=== PATIENT | female | born 1985 | race Caucasian/White ===

== ENCOUNTER 2019-10-26 12:55 | Outpatient (CLI) | payer OTHER, SELFPAY ==
[2019-10-26 13:58] LABS: Basophils % 0.6 %; Eosinophils # 0.2 10^3/uL (0.0-0.8); Eosinophils % 2.5 %; Hematocrit 31.8 % (37.0-47.0); Hemoglobin 8.7 g/dL (11.5-15.3); Lymphocytes # 1.8 10^3/uL (0.8-4.8); Lymphocytes % 26.2 %; Mean Corpuscular HGB Conc 27.4 g/dL (30.0-36.0); Mean Corpuscular Hemoglobin 20.8 pg (28.0-34.0); Mean Corpuscular Volume 75.9 fL (81-99); Mean Platelet Volume 11.1 fL (7.4-10.4); Monocytes # 0.4 10^3/uL (0.2-0.9); Monocytes % 5.8 %; Neutrophils # 4.33 10^3/uL (1.8-7.7); Neutrophils % 64.8 %; Nucleated Red Blood Cells % 0 %; Platelet Count 325 10^3/cmm (130-400); Red Blood Count 4.19 10^6/uL (4.1-5.3); Red Cell Distribution Width 17.6 % (12.1-15.1); White Blood Count 6.7 10^3/uL (4.0-10.0)
--- NOTE | 2019-10-26 15:25 | ONC CON_ITS ---
Dr. Lee New Patient Note Patient: Lo Vasquez Unit #: [id number]: 1985 Dicatated By: Jai Lee M.D.Date of Visit: Oct 26, 2019 Onc MED New Patient/Consult Referring Physician: GARDENIA BALL, F.N.P. History of Present Illness: Ms. Lo Vasquez, 34-year-old female with history of iron deficiency anemia diagnosed in 2018, when she was with her third child. She was given an oral iron supplement, patient took it for 2 weeks then stopped taking it because of GI intolerance e.g. abdominal pain indigestion, constipation, flatulence. Now recently started having progressive generalized weakness and fatigue, dyspnea on exertion, palpitation, mild dizziness, went to see her PMD on August 29, 2019 and routine lab work-up done that day showed white blood count 6.9 hemoglobin 9.2 hematocrit 30.1 platelets 321,000 with MCV 71.7 CMP was within normal limit except AST 67, TSH 1.44, anemia work-up showed ferritin 4 iron 20 iron saturation 5% findings were consistent with iron deficiency anemia. As patient could not take oral iron earlier, she was referred to hematology clinic for evaluation for parenteral iron. Patient denies any history of blood transfusion, denies any history of jaundice denies any history of melena or hematochezia or hemoptysis or hematemesis but history of gastroesophageal reflux for which she takes omeprazole. Denies any history of hematuria but history of heavy menstrual. periods, as per patient she has been referred to [facility] for evaluation but still waiting for the appointment. And she also noticed continues vaginal bleeding mixed with off and on spotting since her last periods Started on September 27, 2019. Denies any family history of colon cancer, denies any history of EGD or colonoscopy in the past. Past Medical History: Ms. Mason medical history consists of gastroesophageal reflux disease and irritable bowel syndrome. Past Surgical History: Ms. Mason surgical/procedural history consists of caesarean section in 2006. Medications: Amitriptyline HCl 1 Tablet (of 25 mg) Oral daily, Flaxseed Oil 1 Capsule Oral daily, Magnesium 1 Tablet (of 400 mg) Oral daily, Omeprazole 1 Capsule (of 20 mg) Capsule Delayed Release Oral daily, Vitamin C 1 Capsule (of 500 mg) Oral daily, Zinc 1 Tablet (of 50 mg) Oral daily Allergies: Bactrim DS and Erythromycin Base. Social History: Ms. Vasquez is and she is unemployed. She is a light tobacco smoker who has smoked 0.5 packs/day for 4 years. She has no history of drinking. She has indicated exposure to the following products: cigarettes. Ms. Vasquez reports the following support systems: lives with spouse, significant other, family, or friends, lives in own house, supportive family/friends willing to assist with needs, and adequate transportation available for expected visits. Her diet consists of regular meals. She indicates her activity level as: regular exercise. Family History: Ms. Kangs mother is alive: hypertension, and melanoma, and basal cell carcinoma, and squamous cell skin cancer. Ms. Kangs father is alive: tongue cancer. Review Of Symptoms: Constitutional - Appetite is diminished and weight is increasing. No fever or hot flashes. Energy level is fair. Positive for night sweats, ENMT - No sinus congestion/drainage. No mouth sores. No sore throat or difficulty swallowing, Hematologic/Lymphatic - Pt reports that she bruises easily. Pt has also been experiencing continuous menstrual bleeding for approximately 1 month, Respiratory - Positive for shortness of breath. No cough. No pleuritic pain or hemoptysis, Cardiovascular - No angina pain. Positive for palpitations, Gastrointestinal - No nausea or vomiting. No heartburn. Positive for acid reflux. No diarrhea. Positive for constipation. No blood in the stool or black stools, Genitourinary (F) - No dysuria or hematuria. No urinary frequency. No urgency. Occasional incontinence, Musculoskeletal - No joint or bone pain, Neurologic - No headache or dizziness. No numbness or tingling. No other focal neurologic symptoms, Psychiatric - No anxiety or depression. Positive for insomnia. Vital Signs: Most recent vitals are not available for this patient. Performance Status: 0 - Fully active, able to carry on all predisease activities without restrictions. (ECOG) Physical Examination: ENMT - No mouth sores, no jaundice, no thrush, Respiratory - Lungs are clear, Cardiovascular - Regular rate and rhythm of heart, Abdomen - Soft, bowel sounds present, Extremities - No visible edema. Lab/Imaging: Most recent lab results are not available for this patient. Impression: Iron deficiency anemia, most likely due to heavy menstrual periods, now with dysfunctional uterine bleeding etiology unclear History of oral iron intolerance e.g. GI intolerance, abdominal pain, constipation excessive flatulence. History of reflux disease, on omeprazole Active smoker Recent weight gain. Plan: Discussed with patient regarding her labs from today showed white blood count 6.7 hemoglobin 8.7 hematocrit 31.8 platelets 325,000 MCV 75.9 with normal differential Clinically, patient is a mild to moderate distress due to progressive iron deficiency anemia due to heavy menstrual periods, now with dysfunctional uterine bleeding since September 27, 2019, patient is awaiting [facility] evaluation. Patient also has history of intolerance to oral iron, in that case we would consider parenteral iron Injectafer 750 mg IV weekly x2 all the side effects possible benefits associated with IV iron including allergic reaction were mentioned further teaching will be done by nursing. Patient has no family history of colon cancer and no history of GI bleeding, role of colonoscopy in iron deficiency anemia was discussed and if with management of her heavy menstrual periods, she still has persistent iron deficiency anemia or if there is any evidence of GI bleeding, in that case we will consider GI evaluation as patient is reluctant at this point. We will obtain approval from insurance prior to the infusion and then she will return to clinic 1 month after second weekly dose of Injectafer with CBC and iron studies. We will also check her B12 and folic acid level, if low will consider supplement. Signed By: Jai Lee M.D. <<Signature on File>>
[2019-10-27 07:55] LABS: Folate Level 11.5 ng/mL (4.8-37.3); Vitamin B12 248 pg/mL (232-1245)
== END 2019-10-26 12:56 | disposition home or self-care (01) ==
LOC: ONCMED 13:01
PROVIDERS: PCP Nurse Practitioner Family; Visit Provider Internal Medicine Hematology & Oncology
DX: D50.9 Iron deficiency anemia, unspecified (principal); N92.0 Excessive and frequent menstruation with regular cycle; N93.8 Other specified abnormal uterine and vaginal bleeding; K21.9 Gastro-esophageal reflux disease without esophagitis; F17.200 Nicotine dependence, unspecified, uncomplicated; R63.5 Abnormal weight gain
CPT/HCPCS: 82607; 82746; 85025; 99203

== ENCOUNTER 2019-11-02 06:19 | Outpatient (CLI) | payer OTHER, SELFPAY ==
[2019-11-02] MEDS: ferric carboxy (IVPB) 750 MG in sodium chloride 0.9% (100 ml) 100 ML 345 MG IV (10:13)
== END 2019-11-02 06:20 | disposition home or self-care (01) ==
LOC: ONCMED 06:21
PROVIDERS: PCP Nurse Practitioner Family; Visit Provider Internal Medicine Hematology & Oncology
DX: D50.9 Iron deficiency anemia, unspecified (principal)
CPT/HCPCS: 96365; J1439

== ENCOUNTER 2019-11-10 06:08 | Outpatient (CLI) | payer OTHER, SELFPAY ==
[2019-11-10] MEDS: ferric carboxy (IVPB) 750 MG in sodium chloride 0.9% (100 ml) 100 ML 460 MG IV (08:46)
== END 2019-11-10 06:09 | disposition home or self-care (01) ==
LOC: ONCMED 06:10
PROVIDERS: PCP Nurse Practitioner Family; Visit Provider Internal Medicine Hematology & Oncology
DX: D50.9 Iron deficiency anemia, unspecified (principal)
CPT/HCPCS: 96365; J1439

== ENCOUNTER 2019-12-04 07:39 | Outpatient (CLI) | payer OTHER, SELFPAY ==
--- NOTE | 2019-12-04 07:48 | MM_ITS ---
WS: [id number] Bilateral screening digital mammogram, 12/04/2019 Clinical Data: SCREENING Comparison: None. Findings: The breast parenchymal pattern shows fibroglandular tissue No spiculated masses or clustered calcific ations are seen. There are no secondary signs of carcinoma. MM/[id number] Impression: 1. Negative bilateral mammogram. 2. Recommend screening mammograms when clinically indicated. BIRADS: 1-Negative FOLLOW UP: See Report The CAD engineering drawings checker was used.
== END 2019-12-04 07:40 | disposition home or self-care (01) ==
LOC: RADSHAW 07:42
PROVIDERS: PCP Nurse Practitioner Family; Visit Provider Nurse Practitioner Family
DX: Z12.31 Encounter for screening mammogram for malignant neoplasm of breast (principal)
CPT/HCPCS: 77067

== ENCOUNTER 2019-12-08 11:46 | Outpatient (CLI) | payer OTHER, SELFPAY ==
[2019-12-08 12:08] LABS: Basophils % 0.2 %; Eosinophils % 0.2 %; Hematocrit 38.9 % (37.0-47.0); Hemoglobin 12.2 g/dL (11.5-15.3); Lymphocytes # 3.4 10^3/uL (0.8-4.8); Lymphocytes % 24.5 %; Mean Corpuscular HGB Conc 31.4 g/dL (30.0-36.0); Mean Corpuscular Hemoglobin 28.8 pg (28.0-34.0); Mean Platelet Volume 10.6 fL (7.4-10.4); Monocytes # 0.9 10^3/uL (0.2-0.9); Monocytes % 6.3 %; Neutrophils # 9.44 10^3/uL (1.8-7.7); Neutrophils % 68.2 %; Nucleated Red Blood Cells % 0 %; Platelet Count 262 10^3/cmm (130-400); Red Blood Count 4.23 10^6/uL (4.1-5.3); White Blood Count 13.9 10^3/uL (4.0-10.0)
[2019-12-08 12:21] LABS: Ferritin 250 ng/mL (15-150); Iron 79 ug/dL (37-145); Percent Saturation 40.1 % (20-50); Total Iron Binding Capacity 197 mcg/dl; Unsaturated Iron Binding 118 ug/dL (112-347)
[2019-12-08 13:03] LABS: Add RBC Morph Yes
[2019-12-08 13:04] LABS: Slide Review Slide Review Perform
[2019-12-08 13:06] LABS: RBC Morph Comp No
[2019-12-08 13:07] LABS: Anisocytosis 2+
[2019-12-08 13:08] LABS: Tear Drop Cells 1+
== END 2019-12-08 11:47 | disposition home or self-care (01) ==
LOC: ONCMED 11:46
PROVIDERS: PCP Nurse Practitioner Family; Visit Provider Internal Medicine Hematology & Oncology
DX: D50.9 Iron deficiency anemia, unspecified (principal)
CPT/HCPCS: 82728; 83540; 83550; 85025

== ENCOUNTER 2019-12-11 05:37 | Outpatient (CLI) | payer OTHER, SELFPAY ==
[2019-12-11] MEDS: cyanocobalamin 1,000 mcg/mL SDV 1000 MCG SUBCUT (14:20)
--- NOTE | 2019-12-11 16:09 | ONC FU_ITS ---
Dr. Lee follow up note Patient: Lo Vasquez Unit #: [id number]: 1985 Dicatated By: Jai Lee M.D.Date of Visit:Dec 11, 2019 Onc Med Follow-up/Prog Note History of Present Illness: Ms. Lo Vasquez, 34-year-old female with history of iron deficiency anemia diagnosed in 2018, when she was with her third child. She was given an oral iron supplement, patient took it for 2 weeks then stopped taking it because of GI intolerance e.g. abdominal pain indigestion, constipation, flatulence. Now recently started having progressive generalized weakness and fatigue, dyspnea on exertion, palpitation, mild dizziness, went to see her PMD on August 29, 2019 and routine lab work-up done that day showed white blood count 6.9 hemoglobin 9.2 hematocrit 30.1 platelets 321,000 with MCV 71.7 CMP was within normal limit except AST 67, TSH 1.44, anemia work-up showed ferritin 4 iron 20 iron saturation 5% findings were consistent with iron deficiency anemia. As patient could not take oral iron earlier, she was referred to hematology clinic for evaluation for parenteral iron. Patient denies any history of blood transfusion, denies any history of jaundice denies any history of melena or hematochezia or hemoptysis or hematemesis but history of gastroesophageal reflux for which she takes omeprazole. Denies any history of hematuria but history of heavy menstrual. periods, as per patient she has been referred to [facility] for evaluation but still waiting for the appointment. And she also noticed continues vaginal bleeding mixed with off and on spotting since her last periods Started on September 27, 2019. Denies any family history of colon cancer, denies any history of EGD or colonoscopy in the past. Injectafer 750 mg IV was given on November 01 and November 10, 2019 with excellent response, with normalization of hemoglobin and iron stores. Came for follow-up, complaining of generalized weakness and fatigue, still having heavy menstrual periods but no melena or hematochezia, no hemoptysis or hematemesis, no jaundice. Medications: Amitriptyline HCl 1 Tablet (of 25 mg) Oral daily, Flaxseed Oil 1 Capsule Oral daily, hydrOXYzine Pamoate 1 Capsule (of 25 mg) Oral four times a day, Magnesium 1 Tablet (of 400 mg) Oral daily, Omeprazole 1 Capsule (of 20 mg) Capsule Delayed Release Oral daily, Vitamin C 1 Capsule (of 500 mg) Oral daily, Zinc 1 Tablet (of 50 mg) Oral daily Allergies: Bactrim DS and Erythromycin Base. Review of Systems: Review of Systems is not available for this patient. Vital Signs: Performed on Dec 11, 2019 13:37 Height - 62 in Weight - 186.9 lbs (HIGH) BSA - 1.86 sq.m BMI - 34.18 (HIGH) Temperature - 97.5 F (LOW) Pulse - 83 /min Respiration - 18 /min BP - 130/84 mm(hg) O2 Sat - 97 % Pain - 10 Performance Status: 0 - Fully active, able to carry on all predisease activities without restrictions. (ECOG) Physical Examination: ENMT - No mouth sores, no thrush, no jaundice, Respiratory - Lungs are clear to auscultation, Cardiovascular - Regular rate and rhythm of heart, Abdomen - Soft, bowel sounds present, Extremities - No visible edema. Lab/Imaging: Most recent lab results are not available for this patient. Impression: Iron deficiency anemia, most likely due to heavy menstrual periods, now with dysfunctional uterine bleeding etiology unclear History of oral iron intolerance e.g. GI intolerance, abdominal pain, constipation excessive flatulence. History of reflux disease, on omeprazole Active smoker Recent weight gain. Plan: Discussed with patient regarding her labs white blood count 13.9 hemoglobin 12.2 hematocrit 38.9 platelets 262,000 iron saturation 40.1 ferritin 250 iron 79, folate 11.5 and B12 248 which is on the low side of normal range Clinically, patient is doing well, tolerated parenteral iron well now with excellent response, her hemoglobin has gone up to 12.2 g from 8.7 on October 26, 2019 ED prior to Injectafer infusion, thus patient responded well to parenteral iron and her folate level was within normal range but B12 was on the low side of normal range and patient still symptomatic which could be due to low B12 and patient is on oral B12 supplements, may have partial malabsorption,, at this point we will consider parenteral B12,, starting today, weekly x4, loading dose then every month as maintenance. Patient will return to clinic in 1 month with CBC iron studies and B12 level. As far as heavy menstrual periods Is concerned, patient is considering control pills. Signed By: Jai Lee M.D. <<Signature on File>>
== END 2019-12-11 05:38 | disposition home or self-care (01) ==
LOC: ONCMED 05:38
PROVIDERS: PCP Nurse Practitioner Family; Visit Provider Internal Medicine Hematology & Oncology
DX: D50.9 Iron deficiency anemia, unspecified (principal); N93.8 Other specified abnormal uterine and vaginal bleeding; K21.9 Gastro-esophageal reflux disease without esophagitis; N92.0 Excessive and frequent menstruation with regular cycle; F17.210 Nicotine dependence, cigarettes, uncomplicated; R63.5 Abnormal weight gain; Z68.34 Body mass index [BMI] 34.0-34.9, adult
CPT/HCPCS: 96372; 99214; J3420

== ENCOUNTER 2019-12-19 05:57 | Outpatient (CLI) | payer OTHER, SELFPAY ==
[2019-12-19] MEDS: cyanocobalamin 1,000 mcg/mL SDV 1000 MCG SUBCUT (13:05)
== END 2019-12-19 05:58 | disposition home or self-care (01) ==
LOC: ONCMED 05:57
PROVIDERS: PCP Nurse Practitioner Family; Visit Provider Internal Medicine Hematology & Oncology
DX: D50.9 Iron deficiency anemia, unspecified (principal)
CPT/HCPCS: 96372; J3420

== ENCOUNTER 2019-12-25 06:34 | Outpatient (CLI) | payer OTHER, SELFPAY ==
[2019-12-25] MEDS: cyanocobalamin 1,000 mcg/mL SDV 1000 MCG IM (13:20)
== END 2019-12-25 06:35 | disposition home or self-care (01) ==
LOC: ONCMED 06:36
PROVIDERS: PCP Nurse Practitioner Family; Visit Provider Internal Medicine Hematology & Oncology
DX: D50.9 Iron deficiency anemia, unspecified (principal)
CPT/HCPCS: 96372; J3420

== ENCOUNTER 2020-01-03 06:36 | Outpatient (CLI) | payer OTHER, SELFPAY ==
[2020-01-03] MEDS: cyanocobalamin 1,000 mcg/mL SDV 1000 MCG SUBCUT (11:53)
== END 2020-01-03 06:37 | disposition home or self-care (01) ==
LOC: ONCMED 06:37
PROVIDERS: PCP Nurse Practitioner Family; Visit Provider Internal Medicine Hematology & Oncology
DX: D50.9 Iron deficiency anemia, unspecified (principal)
CPT/HCPCS: 96372; J3420

== ENCOUNTER 2020-01-12 05:52 | Outpatient (CLI) | payer OTHER, SELFPAY ==
[2020-01-12 09:29] LABS: Basophils # 0.1 10^3/uL (0.0-0.1); Basophils % 0.4 %; Eosinophils # 0.1 10^3/uL (0.0-0.8); Eosinophils % 0.8 %; Hematocrit 43.7 % (37.0-47.0); Lymphocytes # 3.7 10^3/uL (0.8-4.8); Lymphocytes % 31.2 %; Mean Corpuscular Hemoglobin 31.7 pg (28.0-34.0); Mean Corpuscular Volume 99.1 fL (81-99); Mean Platelet Volume 10.5 fL (7.4-10.4); Monocytes # 0.7 10^3/uL (0.2-0.9); Monocytes % 5.6 %; Neutrophils # 7.22 10^3/uL (1.8-7.7); Neutrophils % 61.5 %; Nucleated Red Blood Cells % 0 %; Platelet Count 290 10^3/cmm (130-400); Red Blood Count 4.41 10^6/uL (4.1-5.3); Red Cell Distribution Width 15.6 % (12.1-15.1); White Blood Count 11.8 10^3/uL (4.0-10.0)
[2020-01-12 09:57] LABS: Ferritin 141 ng/mL (15-150); Iron 71 ug/dL (37-145); Percent Saturation 21.3 % (20-50); Total Iron Binding Capacity 332 mcg/dl; Unsaturated Iron Binding 261 ug/dL (112-347)
[2020-01-12 10:13] LABS: Vitamin B12 432 pg/mL (232-1245)
== END 2020-01-12 05:53 | disposition home or self-care (01) ==
LOC: ONCMED 05:53
PROVIDERS: PCP Nurse Practitioner Family; Visit Provider Internal Medicine Hematology & Oncology
DX: D50.9 Iron deficiency anemia, unspecified (principal)
CPT/HCPCS: 36415; 82607; 82728; 83540; 83550; 85025

== ENCOUNTER 2020-01-15 05:49 | Outpatient (CLI) | payer OTHER, SELFPAY ==
--- NOTE | 2020-01-15 14:21 | ONC FU_ITS ---
Dr. Lee follow up note Patient: Lo Vasquez Unit #: [id number]: 1985 Dicatated By: Jai Lee M.D.Date of Visit:Jan 15, 2020 Onc Med Follow-up/Prog Note History of Present Illness: Ms. Lo Vasquez, 34-year-old female with history of iron deficiency anemia diagnosed in 2018, when she was with her third child. She was given an oral iron supplement, patient took it for 2 weeks then stopped taking it because of GI intolerance e.g. abdominal pain indigestion, constipation, flatulence. Now recently started having progressive generalized weakness and fatigue, dyspnea on exertion, palpitation, mild dizziness, went to see her PMD on August 29, 2019 and routine lab work-up done that day showed white blood count 6.9 hemoglobin 9.2 hematocrit 30.1 platelets 321,000 with MCV 71.7 CMP was within normal limit except AST 67, TSH 1.44, anemia work-up showed ferritin 4 iron 20 iron saturation 5% findings were consistent with iron deficiency anemia. As patient could not take oral iron earlier, she was referred to hematology clinic for evaluation for parenteral iron. Patient denies any history of blood transfusion, denies any history of jaundice denies any history of melena or hematochezia or hemoptysis or hematemesis but history of gastroesophageal reflux for which she takes omeprazole. Denies any history of hematuria but history of heavy menstrual. periods, as per patient she has been referred to [facility] for evaluation but still waiting for the appointment. And she also noticed continues vaginal bleeding mixed with off and on spotting since her last periods Started on September 27, 2019. Denies any family history of colon cancer, denies any history of EGD or colonoscopy in the past. Came for follow-up, denies any specific complaints, no nausea or vomiting, no diarrhea or constipation, as per patient her menstrual periods have slowed down since she is on control pills, now every 3 months and not that heavy either. But no jaundice, no melena or hematochezia,, no shortness of breath no palpitation, more energetic. Injectafer 750 mg IV was given on November 01 and November 10, 2019 with excellent response, with normalization of hemoglobin and iron stores. Medications: Amitriptyline HCl 1 Tablet (of 25 mg) Oral daily, Flaxseed Oil 1 Capsule Oral daily, hydrOXYzine Pamoate 1 Capsule (of 25 mg) Oral four times a day, Magnesium 1 Tablet (of 400 mg) Oral daily, Omeprazole 1 Capsule (of 20 mg) Capsule Delayed Release Oral daily, Vitamin C 1 Capsule (of 500 mg) Oral daily, Zinc 1 Tablet (of 50 mg) Oral daily Allergies: Bactrim DS and Erythromycin Base. Review of Systems: Constitutional - Appetite is diminished and weight is increasing. No fever or hot flashes. Energy level is fair. Positive for night sweats, ENMT - No sinus congestion/drainage. No mouth sores. No sore throat or difficulty swallowing, Hematologic/Lymphatic - Pt reports that she bruises easily. Pt has also been experiencing continuous menstrual bleeding for approximately 1 month, Respiratory - Positive for shortness of breath. No cough. No pleuritic pain or hemoptysis, Cardiovascular - No angina pain. Positive for palpitations, Gastrointestinal - No nausea or vomiting. No heartburn. Positive for acid reflux. No diarrhea. Positive for constipation. No blood in the stool or black stools, Genitourinary (F) - No dysuria or hematuria. No urinary frequency. No urgency. Occasional incontinence, Musculoskeletal - No joint or bone pain, Neurologic - No headache or dizziness. No numbness or tingling. No other focal neurologic symptoms, Psychiatric - No anxiety or depression. Positive for insomnia. Vital Signs: Performed on Jan 15, 2020 12:36 Height - 62.00 in Weight - 189.8 lbs (HIGH) BSA - 1.87 sq.m BMI - 34.72 (HIGH) Temperature - 97.8 F (LOW) Pulse - 93 /min Respiration - 24 /min BP - 130/85 mm(hg) O2 Sat - 95 % (LOW) Pain - 0 Performance Status: 0 - Fully active, able to carry on all predisease activities without restrictions. (ECOG) Physical Examination: ENMT - No mouth sores, no thrush, no jaundice, Respiratory - Lungs are clear to auscultation, Cardiovascular - Regular rate and rhythm of heart, Abdomen - Soft, bowel sounds present, Extremities - No visible edema. Lab/Imaging: Test performed on Dec 08, 2019 11:50 Ferritin 250 ng/mL Iron 79 mcg/dL Iron Binding Capacity (TIBC) 197 mcg/dl % Iron Saturation 40.1 % UIBC 118 mcg/dL WBC 13.9 10 3/uL RBC 4.23 10 6/uL Anisocytosis 2+ HGB 12.2 g/dL HCT 38.9 % MCV 92.0 fL MCH 28.8 pg MCHC 31.4 g/dL Platelet Count 262 10 3/cmm MPV 10.6 fL Neutrophils 9.44 10 3/uL Lymphocytes 3.4 10 3/uL Monocytes 0.9 10 3/uL Eosinophils 0.0 10 3/uL Basophils 0.0 10 3/uL Neutrophil % 68.2 % Lymphocyte % 24.5 % Monocyte % 6.3 % Eosinophil % 0.2 % Basophils % 0.2 % Tear Drop Cells 1+ NRBC % 0 % CBC Slide Review Slide Review Perform RBC ABNORMAL DISTRIBUTION, DIMORPHIC POPULATION Test performed on Oct 26, 2019 13:15 Folate, Serum 11.5 ng/mL Vitamin B12 248 pg/mL Test performed on Oct 26, 2019 13:10 RDW 17.6 % Impression: Iron deficiency anemia, most likely due to heavy menstrual periods, now with dysfunctional uterine bleeding etiology unclear History of oral iron intolerance e.g. GI intolerance, abdominal pain, constipation excessive flatulence. History of reflux disease, on omeprazole Active smoker Recent weight gain. Plan: Discussed with patient regarding her labs white blood count 11.8 hemoglobin 14 g, hematocrit 43.7 platelets 290,000, iron saturation 21.3% ferritin 141 B12 432 Clinically, patient is doing well with no new signs symptom, more energetic, her menstrual periods, now under control with control pills, as per patient now instead of every month now she get menstrual every 3 months, her follow-up lab work-up showed hemoglobin within normal range at 14 g compared to 8.7 g on October 26, 2019 prior to parenteral iron supplement done in October 2019. We will continue to monitor her blood counts and iron studies and B12 level she will return to clinic in 3 months and if it shows normal values, then will see her on as-needed basis as her iron deficiency anemia was probably due to heavy menstrual periods which is, now under control with control pill. Signed By: Jai Lee M.D. <<Signature on File>>
== END 2020-01-15 05:50 | disposition home or self-care (01) ==
LOC: ONCMED 05:50
PROVIDERS: PCP Nurse Practitioner Family; Visit Provider Internal Medicine Hematology & Oncology
DX: D50.9 Iron deficiency anemia, unspecified (principal); N92.1 Excessive and frequent menstruation with irregular cycle; R10.84 Generalized abdominal pain; K59.00 Constipation, unspecified; R14.3 Flatulence; K21.9 Gastro-esophageal reflux disease without esophagitis; F17.210 Nicotine dependence, cigarettes, uncomplicated; R63.5 Abnormal weight gain; D51.9 Vitamin B12 deficiency anemia, unspecified
CPT/HCPCS: G0463

== ENCOUNTER → 2020-03-12 10:39 | Outpatient (BNVA) | payer OTHER, SELFPAY | PROVIDERS: PCP Nurse Practitioner Family; Visit Provider Specialist | DX: M25.531 Pain in right wrist (principal); R20.0 Anesthesia of skin; R20.2 Paresthesia of skin; F17.210 Nicotine dependence, cigarettes, uncomplicated | CPT/HCPCS: 95908 ==

== ENCOUNTER → 2020-04-12 15:36 | Outpatient (BNVA) | payer OTHER, SELFPAY | PROVIDERS: PCP Nurse Practitioner Family; Visit Provider Orthopaedic Surgery | DX: Z20.822 Contact with and (suspected) exposure to COVID-19 (principal) | CPT/HCPCS: 87635 ==

== ENCOUNTER 2020-04-18 07:47 | Day surgery (SDC) | payer OTHER, SELFPAY ==
[2020-04-17 13:17] VITALS: BMI 33.8
[2020-04-18 08:04] VITALS: BP 150/97; PULSE 88; RESP 18; TEMP 36.5; O2SAT 99
[2020-04-18 08:07] LABS: OR HCG Qualitative Urine Negative (Negative)
[2020-04-18] MEDS: sodium chloride 0.9% 1,000 ML 30 ML IV (08:30)
--- NOTE | 2020-04-18 08:40 | ANES.PREANE2 ---
Pre-Anesthetic Assessment Pre-Anesthetic Assessment: Height/Weight: Height 1.57 m Weight 83.915 kg Temp Pulse Resp BP Pulse Ox 97.7 F 88 18 150/97 99 04/18/20 08:04 04/18/20 08:04 04/18/20 08:04 04/18/20 08:04 04/18/20 08:04 Preop Diagnosis: Carpal tunnel syndrome/cubital tunnel syndrome right arm Proposed Procedure: Operation Date: 04/18/20 09:10 Proposed Procedures p Carpal Tunnel Release [id number] G56.01 G56.21(Right) - Yair Ho MD s Ulna Nerve Decompression(Right) - Yair Ho MD Familial anesthetic complications: None Was Beta Zaki taken within 24 hours: N/A Last intake: Intake Last Liquid Date 04/17/20 Last Liquid Time 23:00 Last Solid Date 04/17/20 Last Solid Time 23:00 Social: Social History: No alcohol and No tobacco Exam: Pre-Anes Outpt Exam: alert, oriented x 3, clear to auscultation bilaterally and regular rate & rhythm Airway: Cervical ROM: WNL MP: 3 Dentition: Other (missing 2) CV/HEM: CV/HEM: Anemia GI: GI: GERD Comments: IBS Anesthetic Plan: ASA status: 2 Anesthesia: MAC and Regional (specify below) (diana block) Risk of > 500 ml blood loss (7ml/kg in children): No Meds/Allergies Current Medications: Current Medications Generic Name Dose Route Start Last Admin Trade Name Freq PRN Reason Stop Dose Admin Sodium Chloride 1,000 mls @ 30 ml s/hr 04/18/20 08:00 04/18/20 08:30 Sodium Chloride 0.9% IV 04/19/20 07:59 30 mls/hr .Q24H NIRMALA Administration PFSH Anesthesia PFSH: Medical History Anemia Surgical History History of section Family History Other Cancer Social History Smoking and tobacco status: current every day smoker Alcohol intake: current Alcohol intake frequency: holidays/special occasions only History of recent travel: No Data Anesthesia Other Labs: Laboratory Results - last 48 hr 04/18/20 08:00 Urine HCG, Qual Negative Cardiac Studies: No Data to Display
--- NOTE | 2020-04-18 08:50 | W.PM.OPSUD ---
Surgery/Procedure H&P Update DATE OF PROCEDURE: April 18, 2020 DATE H&P PERFORMED: 04/03/20 PREOP DIAGNOSIS: Carpal tunnel syndrome/cubital tunnel syndrome right arm PLANNED PROCEDURE: Operation Date: 04/18/20 09:10 Proposed Procedures p Carpal Tunnel Release [id number] G56.01 G56.21(Right) - Yair Ho MD s Ulna Nerve Decompression(Right) - Yair Ho MD
--- NOTE | 2020-04-18 10:11 | PM.OP ---
Operative Report Date of procedure: April 18, 2020 Pre-op Diagnosis: Carpal tunnel syndrome/cubital tunnel syndrome right arm Post-op diagnosis: same Post-op Findings: Same Procedure Done: Right ulnar nerve decompression, right carpal tunnel release Pathology: none sent Anesthesia: Nerve Block (Jaxson block) Estimated blood loss (mL): 10 Tourniquet time (min): 22 Complications: None Findings: No masses or space-occupying lesions are seen about the ulnar nerve or within the carpal tunnel Condition: stable Disposition: same day Procedure: The patient was taken to the operating room and given a [place] block by anesthesia.. A tourniquet was inflated to 225 mmHg. A timeout was performed. A 5 cm long incision was made behind the medial epicondyle. Dissection was accomplished bluntly under loupe magnification identifying the ulnar nerve proximally. Utilizing a hemostat the fascia over the nerve was elevated and incised proximally. Dissection was then carried distally behind the medial epicondyle and into the flexor carpi ulnaris musculature. Dissection was stopped with the first muscular branches identified. Elbow was brought through range of motion with the nerve seen to stay reduced behind the medial epicondyle. No formal transition was thought to be warranted. The wound was then packed with a moist 4 x 4 dressing and attention focused on the carpal tunnel. A 3 cm long incision was made in line with the fourth ray from the distal edge of the carpal tunnel extending proximally. The subcutaneous fat and palmar fascia was divided with a scalpel blade. Under loupe magnification the ulnar neurovascular bundle was identified distally. A hemostat could be passed under the transverse carpal ligament allowing the distal 25% to be divided. A slotted guide was then passed beneath the transverse carpal ligament and the middle 50% divided. Blunt scissors were then passed over the guide freeing the proximal ligament. The tourniquet was deflated. Hemostasis provided with electrocautery. Wound edges of both incisions were infiltrated with 10 cc of a half percent Marcaine solution. S=Wounds were irrigated with saline. Deep tissues of the elbow were closed with 2-0 Vicryl. The elbow skin was closed with a running 3-0 Prolene. Steri-Strips were applied. The carpal tunnel incision was closed with interrupted vertical 3-0 Prolene suture. Xeroform gauze, 4 x 4's, compressive padding, and Aaron wrap, and a sling were applied. The patient was taken to outpatient in stable condition.
[2020-04-18 10:19] VITALS: BP 130/69; PULSE 88; RESP 18; TEMP 36.7; O2SAT 98
--- NOTE | 2020-04-18 10:20 | ANE.PACU2 ---
Inpatient post-anesthesia follow up: Airway intact: Yes Vital signs: Temperature 97.7 F Pulse Rate 88 Respiratory Rate 18 Blood Pressure 150/97 Pulse Oximetry 99 Oxygen Delivery Me thod Room Air Oxygen Flow Rate Fraction of Inspir ed Oxygen Hydration adequate: Yes Nausea and vomiting: No Pain level: 1 Mental status: Baseline
[2020-04-18 10:37] VITALS: BP 131/98; PULSE 77; RESP 18; O2SAT 99
== END 2020-04-18 10:55 | disposition home or self-care (01) ==
PROVIDERS: PCP Nurse Practitioner Family; Visit Provider Orthopaedic Surgery
PROC: (CPT 64721; principal; 2020-04-18 09:10)
PROC: (CPT 64718; 2020-04-18 09:10)
DX: G56.01 Carpal tunnel syndrome, right upper limb (principal); G56.21 Lesion of ulnar nerve, right upper limb; F17.210 Nicotine dependence, cigarettes, uncomplicated; Z79.52 Long term (current) use of systemic steroids
CPT/HCPCS: 64718; 64721; 81025; 84703; J0690; J2704; J3010; J3490; J7030

== ENCOUNTER 2020-07-18 14:20 | Outpatient (CLI) | payer OTHER, SELFPAY ==
[2020-07-18 15:19] LABS: Basophils % 0.6 %; Eosinophils # 0.2 10^3/uL (0.0-0.8); Eosinophils % 3.1 %; Hemoglobin 11.5 g/dL (11.5-15.3); Lymphocytes # 1.5 10^3/uL (0.8-4.8); Lymphocytes % 21.1 %; Mean Corpuscular HGB Conc 32.9 g/dL (30.0-36.0); Mean Corpuscular Hemoglobin 29.8 pg (28.0-34.0); Mean Corpuscular Volume 90.7 fL (81-99); Mean Platelet Volume 11.7 fL (7.4-10.4); Monocytes # 0.4 10^3/uL (0.2-0.9); Monocytes % 6.2 %; Neutrophils # 4.92 10^3/uL (1.8-7.7); Neutrophils % 68.7 %; Nucleated Red Blood Cells % 0 %; Platelet Count 262 10^3/cmm (130-400); Red Blood Count 3.86 10^6/uL (4.1-5.3); White Blood Count 7.2 10^3/uL (4.0-10.0)
[2020-07-18 16:58] LABS: Ferritin 13 ng/mL (15-150); Iron 27 ug/dL (37-145); Percent Saturation 8.5 % (20-50); Total Iron Binding Capacity 315 mcg/dl; Unsaturated Iron Binding 288 ug/dL (112-347)
--- NOTE | 2020-07-18 17:08 | ONC FU_ITS ---
Dr. Lee follow up note Patient: Lo Vasquez Unit #: [id number]: 1985 Dicatated By: Jai Lee M.D.Date of Visit:July 18, 2020 Onc Med Follow-up/Prog Note History of Present Illness: Ms. Lo Vasquez, 35-year-old female with history of iron deficiency anemia diagnosed in 2018, when she was with her third child. She was given an oral iron supplement, patient took it for 2 weeks then stopped taking it because of GI intolerance e.g. abdominal pain indigestion, constipation, flatulence. Now recently started having progressive generalized weakness and fatigue, dyspnea on exertion, palpitation, mild dizziness, went to see her PMD on August 29, 2019 and routine lab work-up done that day showed white blood count 6.9 hemoglobin 9.2 hematocrit 30.1 platelets 321,000 with MCV 71.7 CMP was within normal limit except AST 67, TSH 1.44, anemia work-up showed ferritin 4 iron 20 iron saturation 5% findings were consistent with iron deficiency anemia. As patient could not take oral iron earlier, she was referred to hematology clinic for evaluation for parenteral iron.Received Injectafer 750 mg intravenously on November 01 and November 10, 2019 with excellent response Patient denies any history of blood transfusion, denies any history of jaundice denies any history of melena or hematochezia or hemoptysis or hematemesis but history of gastroesophageal reflux for which she takes omeprazole. Denies any history of hematuria but history of heavy menstrual. periods, as per patient she has been referred to PUBLIC SAFETY DISPATCHER for evaluation but still waiting for the appointment. And she also noticed continues vaginal bleeding mixed with off and on spotting since her last periods Started on September 27, 2019. Denies any family history of colon cancer, denies any history of EGD or colonoscopy in the past. Came for follow-up, denies any specific complaints except still having heavy menstrual periods Due to adenomyosis, as per patient she is started on control pills yesterday and expecting menstrual period every 3 months. No melena or hematochezia, no nausea or vomiting, no diarrhea constipation, no shortness of breath or palpitation but generalized weakness and fatigue Medications: B-12 6,000 mcg (of 1000 mcg) Tablet, controlled release Oral daily, Flaxseed Oil 1 Capsule Oral daily, Magnesium 1 Tablet (of 400 mg) Oral daily, Omeprazole 1 Capsule (of 20 mg) Capsule Delayed Release Oral daily, Vitamin C 1 Capsule (of 500 mg) Oral daily, Zinc 1 Tablet (of 50 mg) Oral daily Allergies: Bactrim DS and Erythromycin Base. Review of Systems: Review of Systems is not available for this patient. Vital Signs: Performed on July 18, 2020 16:13 Height - 62.00 in Weight - 180.3 lbs (LOW) BSA - 1.83 sq.m BMI - 32.98 (HIGH) Temperature - 98.4 F Pulse - 95 /min Respiration - 18 /min BP - 141/83 mm(hg) (HIGH) O2 Sat - 98 % Pain - 0 Fatigue - 6 Performance Status: 0 - Fully active, able to carry on all predisease activities without restrictions. (ECOG) Physical Examination: ENMT - No mouth sores, no thrush, no jaundice, Respiratory - Lungs are clear to auscultation, Cardiovascular - Regular rate and rhythm of heart, Abdomen - Soft, bowel sounds present, Extremities - No visible edema or rash. Lab/Imaging: Most recent lab results are not available for this patient. Impression: Iron deficiency anemia, most likely due to heavy menstrual periods, now with dysfunctional uterine bleeding Due to adenomyosis History of oral iron intolerance e.g. GI intolerance, abdominal pain, constipation excessive flatulence. Status post Injectafer 750 mg IV weekly x2 in October 2019, With excellent response e.g. normalization of iron deficiency anemia and iron stores History of reflux disease, on omeprazole Active smoker Recent weight gain. heavy menstrual periods, now with dysfunctional uterine bleeding Due to adenomyosis, As per patient PUBLIC SAFETY DISPATCHER started her on control pill on July 17, 2020, and effort to slow down her menstrual Plan: Discussed with patient regarding her labs white blood count 7.2 hemoglobin 11.5 g compared to 14 g on January 12, 2020 hematocrit 35 platelets 262,000 iron studies pending Clinically, patient is doing well with no new signs symptom except generalized weakness and fatigue, patient says she has been having heavy menstrual periods, now from yesterday she started having control pills and expecting menses every 3 months thus less blood loss, her follow-up CBC shows further drop in her hemoglobin and iron studies are pending, once available we will review if it shows iron deficiency anemia will consider Injectafer 750 mg IV weekly x2, if iron studies within normal range then will monitor and see her back in 1 month with CBC and iron studies. Signed By: Jai Lee M.D. <<Signature on File>>
== END 2020-07-18 14:21 | disposition home or self-care (01) ==
LOC: ONCMED 14:25
PROVIDERS: PCP Nurse Practitioner Family; Visit Provider Internal Medicine Hematology & Oncology
DX: D50.9 Iron deficiency anemia, unspecified (principal); N93.8 Other specified abnormal uterine and vaginal bleeding; K21.9 Gastro-esophageal reflux disease without esophagitis; F17.210 Nicotine dependence, cigarettes, uncomplicated; R63.5 Abnormal weight gain; Z79.899 Other long term (current) drug therapy
CPT/HCPCS: 36415; 82728; 83540; 83550; 85025; 99214

== ENCOUNTER 2020-08-05 20:00 | Outpatient (CLI) | payer SELFPAY | END 2020-08-05 20:01 | disposition home or self-care (01) | LOC: SLEEP 07-16 09:13 | PROVIDERS: PCP Family Medicine; Visit Provider Family Medicine | DX: R63.5 Abnormal weight gain (principal) | CPT/HCPCS: 84443 ==

== ENCOUNTER 2020-08-07 15:31 | Outpatient (CLI) | payer OTHER, SELFPAY | END 2020-08-07 15:32 | disposition home or self-care (01) | PROVIDERS: PCP Nurse Practitioner Family; Visit Provider Internal Medicine Hematology & Oncology | DX: D50.0 Iron deficiency anemia secondary to blood loss (chronic) (principal); N92.6 Irregular menstruation, unspecified; Z79.899 Other long term (current) drug therapy | CPT/HCPCS: 96365 ==

== ENCOUNTER 2020-08-08 19:28 | Emergency (ER) | payer OTHER, SELFPAY ==
[2020-08-08 19:40] VITALS: BP 142/90; PULSE 96; RESP 18; TEMP 37.6; O2SAT 98; BMI 32.9
[2020-08-08 19:51] VITALS: BP 154/98; PULSE 97; RESP 18; O2SAT 98
[2020-08-08] MEDS: diphenhydrAMINE 50 mg/mL SDV 1mL IVP (20:03)
[2020-08-08] MEDS: famotidine 20 mg/2 mL INJ 40 MG IVP (20:03)
--- NOTE | 2020-08-08 20:03 | ED_ITS ---
HPI - Allergic Reaction General: Chief complaint: Allergic Reaction Stated complaint: possible allergic reaction, rash Time Seen by Provider: 08/08/20 19:49 Source: patient Mode of arrival: ambulatory Limitations: no limitations History of Present Illness: HPI narrative: 35-year-old female states that she received an iron infusion yesterday and started having a rash with pruritus to her arms and trunk. States that gotten slightly worse today. She denies any weakness or shortness of breath. She denies any worsening improving factors. She denies any pain. She states she has had a couple iron transfusions before and had this with the other ones as well but not as bad MD complaint: allergic reaction and hives Onset (ago): day(s) Associated symptoms: Deny abdominal pain, nausea or vomiting Review of Systems Const: Denies: fever(s), chills, body aches or change in appetite Eyes: Denies: blurry vision or eye discomfort ENMT: Denies: throat pain or dental pain Card: Denies: chest pain Resp: Denies: dyspnea GI: Denies: abdominal pain, nausea, vomiting or diarrhea : Denies: dysuria Musc: Denies: neck pain or back pain Skin/Breast: Reports: rash Neuro: Denies: headache(s) Psych: Denies: depression Andrew/Lymph: Denies: easy bruising All/Imm: Denies: urticaria PFSH ED PFSH: Medical History (Updated 08/08/20 @ 20:51 by Chirag Gant MD) GERD (gastroesophageal reflux disease) Iron deficiency anemia Surgical History (Updated 08/05/20 @ 15:36 by Tri Feliciano DO) H/O carpal tunnel repair History of section Family History Other Cancer Social History Smoking and tobacco status: current every day smoker cigarettes Packs smoked per day: 0.25 Alcohol intake: current Alcohol intake frequency: holidays/special occasions only Desire information about substance/drug rehabilitation?: No History of recent travel: No Female Reproductive History: Date of last menstrual period: 07/13/20 Physical Exam Const: COMMON NORMALS: no acute distress, patient oriented x3 and healthy appearing HENMT: COMMON NORMALS: normocephalic and atraumatic HEAD & SCALP: normocephalic and atraumatic Eye: COMMON NORMALS: Equal, round and reactive pupils present and EOMs intact bilaterally PUPIL: Yes Equal, round and reactive pupils present Neck/C-Spine: COMMON NORMALS: full ROM and supple Chest: COMMONS NORMALS: normal inspection of the chest and normal palpation of entire chest wall Resp: COMMON NORMALS: normal respiratory effort, No retractions, No use of accessory muscles and clear to auscultation bilaterally AUSCULTATION: clear to auscultation bilaterally Cardio: COMMON NORMALS: regular rate, regular rhythm and No murmurs present (Cardio) RATE: regular rate RHYTHM: regular rhythm GI: COMMON NORMALS: Normal to inspection, nondistended, normoactive bowel sounds present, Soft to palpation, non-tender and no masses PALPATION: Yes Soft to palpation Extremity: COMMON NORMALS: normal to inspection and full ROM Neuro: COMMON NORMALS: patient oriented x3, moves all extremities and no focal motor deficits Psych: COMMON NORMALS: mental status grossly normal, Normal thought process present and cooperative THOUGHT PROCESS: Normal thought process present Skin: COMMON NORMALS: no wounds NARRATIVE SKIN EXAM: Urticarial rash to arms legs and trunk Course Vital Signs: Vital signs: Vital Signs Temperature 99.7 F H 08/08/20 19:40 Pulse Rate 79 08/08/20 20:57 Respiratory Rate 18 08/08/20 20:57 Blood Pressure 131/79 08/08/20 20:57 Pulse Oximetry 100 08/08/20 20:57 MDM - Allergic Reaction MDM Narrative: Medical decision making narrative: Patient presents here with allergic reaction could be due to her iron infusion. She feels much improved here after IV meds and will place her on 5 days of steroids for home. She is to speak to her physician about these reactions. She is well-appearing here has no signs of anaphylaxis or airway involvement. She is to return if worsening. Discharge Plan Discharge Patient Disposition: Home Clinical Impression: Allergic reaction, Urticaria Condition: Stable Prescriptions: No Action omeprazole 20 mg capsule,delayed release(DR/EC) 20 mg PO DAILY RF: 0 control PO RF: 0 Eucrisa 2 % ointment 1 applic topical BID Qty: 60 RF: 0 Discharge Orders: Discharge ED (Routine); Ordered 08/08/20 Ordered By: Chirag Gant Referrals: Rosalva Smith FNP [Primary Care Provider] - 1-3 days Discharge Diet: Advance as tolerated Discharge Activity: Resume usual activity Patient Instructions: Allergic Reaction Coding Level of Care Code ED Wax Coating Machine Tender for Chg Fwd Exam Comprehensive
[2020-08-08 20:56] VITALS: BP 131/97; PULSE 79; O2SAT 100
[2020-08-08 20:57] VITALS: BP 131/79; PULSE 79; RESP 18; O2SAT 100
--- NOTE | 2020-08-09 13:59 | PC.NURSE ---
Danisha Shearer called in to [facility] pharmacy per verbal order of Dr. Jordan
== END 2020-08-08 20:57 | disposition home or self-care (01) ==
PROVIDERS: Emergency Provider Emergency Medicine; PCP Nurse Practitioner Family
DX: T78.40XA Allergy, unspecified, initial encounter (principal); L50.9 Urticaria, unspecified; F17.210 Nicotine dependence, cigarettes, uncomplicated
CPT/HCPCS: 96374; 96375; 99284; J1200; J2930; J3490

== ENCOUNTER 2020-09-19 20:00 | Outpatient (CLI) | payer SELFPAY | END 2020-09-19 20:01 | disposition home or self-care (01) | LOC: SLEEP 09-20 08:24 | PROVIDERS: PCP Nurse Practitioner Family; Visit Provider Family Medicine | DX: G47.10 Hypersomnia, unspecified (principal); R06.83 Snoring; R53.83 Other fatigue | CPT/HCPCS: 95810 ==

== ENCOUNTER → 2020-10-14 15:43 | Outpatient (BNVA) | payer SELFPAY | PROVIDERS: PCP Nurse Practitioner Family; Visit Provider Family Medicine | DX: N92.6 Irregular menstruation, unspecified (principal); L20.89 Other atopic dermatitis | CPT/HCPCS: 81025 ==

== ENCOUNTER → 2021-01-29 17:55 | Outpatient (BNVA) | payer OTHER, SELFPAY | PROVIDERS: PCP Family Medicine; Visit Provider Registered Nurse Neonatal Intensive Care | DX: N39.0 Urinary tract infection, site not specified (principal) | CPT/HCPCS: 81000 ==

== ENCOUNTER → 2021-05-21 12:57 | Outpatient (BNVA) | payer BC, SELFPAY | PROVIDERS: PCP Family Medicine; Visit Provider Internal Medicine | DX: R00.2 Palpitations (principal); I49.3 Ventricular premature depolarization | CPT/HCPCS: 93225 ==

== ENCOUNTER 2021-10-06 13:49 | Emergency (ER) | payer BC, MEDICAID, SELFPAY ==
[2021-10-06 14:14] VITALS: BP 174/117; PULSE 87; RESP 14; TEMP 36.9; O2SAT 97; BMI 35.3
[2021-10-06 15:04] VITALS: BP 177/118; PULSE 98; RESP 18; O2SAT 96
[2021-10-06 15:30] LABS: Basophils % 0.3 %; Eosinophils # 0.1 10^3/uL (0.0-0.8); Eosinophils % 0.8 %; Hematocrit 32.4 % (37.0-47.0); Hemoglobin 10.6 g/dL (11.5-15.3); Lymphocytes # 1.4 10^3/uL (0.8-4.8); Lymphocytes % 14.2 %; Mean Corpuscular HGB Conc 32.7 g/dL (30.0-36.0); Mean Corpuscular Hemoglobin 31.9 pg (28.0-34.0); Mean Corpuscular Volume 97.6 fl (81-99); Mean Platelet Volume 10.6 fL (7.4-10.4); Monocytes # 0.7 10^3/uL (0.2-0.9); Monocytes % 6.7 %; Neutrophils # 7.43 10^3/uL (1.8-7.7); Neutrophils % 76.1 %; Nucleated Red Blood Cells % 0 %; Platelet Count 217 10^3/cmm (130-400); Red Blood Count 3.32 10^6/uL (4.1-5.3); Red Cell Distribution Width 14.3 % (12.1-15.1); White Blood Count 9.8 10^3/uL (4.0-10.0)
[2021-10-06 15:47] LABS: Alanine Aminotransferase 36 U/L (0-33); Albumin Level 3.1 g/dL (3.5-5.2); Alkaline Phosphatase 107 IU/L (35-105); Anion Gap 14.3 (5-19); Aspartate Amino Transferase 30 U/L (0-32); Blood Urea Nitrogen 5 mg/dL (6-20); Calcium 8.3 mg/dL (8.5-10.5); Carbon Dioxide 26 mmol/L (22-29); Chloride 106 mmol/L (98-107); Globulin 2.8 g/dL (1.3-4.6); Glomerular Filtration Rate 182.7 mL/min (90-130); Glucose 84 mg/dL (65-115); Osmolality Calculated 292 mOsm/kg (285-295); Potassium 3.3 mmol/L (3.5-5.1); Sodium 143 mmol/L (136-145); Total Bilirubin 0.2 mg/dL (0.15-1.2); Total Protein 5.9 g/dL (6.6-8.7)
--- NOTE | 2021-10-06 15:55 | ED_ITS ---
HPI - General Adult General: Chief complaint: General Medical Stated complaint: High Blood pressure chest discomfort Time Seen by Provider: 10/06/21 14:28 Source: patient Mode of arrival: ambulatory Limitations: no limitations History of Present Illness: Patient is a nice 36-year-old female presents to ED today along with her and 4-day-old infant for concerns of hypertension. Patient tells me she has 4 days from a vaginal delivery. She tells me she checked her blood pressure today and found it was significantly elevated in the 170 systolic. Patient tells me she did not have a ny symptoms at the time. She does states she was having high blood pressures while in the hospital. She had no history of preeclampsia during the . She states vaginal delivery was fairly uncomplicated but does remember getting a large amount of IV fluids. Patient states she has been very anxious and stressed in regards to the stating he had some medical problems regarding elevated blood cells and required multiple lab draws. In addition she states she is not sleeping much due to frequent feedings. Patient does not complain of chest pain, shortness of breath, difficulty breathing. She does have some lower extremity swelling. Denies headache or visual changes. OB provider is in [place], [place]. Patient tells me she thinks a lot of her hypertension is stressed induced. No concerns regarding depression. Onset (ago): day(s) Exacerbating factors: other (stress) Associated symptoms: Deny chest pain, dyspnea, headache(s), malaise, nausea, rash, palpitations, syncope or vomiting Review of Systems Const: Denies: fever(s), chills, body aches, fatigue or malaise Eyes: Denies: change in vision, blurry vision, blind spots, photophobia, floaters or seeing flashes Card: Reports: edema and swelling of feet/ankles; Denies: chest pain, palpitations, irregular heart rhythm, lightheadedness, syncope, pre-syncope, dyspnea on exertion, orthopnea, leg pain with exertion or acrocyanosis Resp: Denies: dyspnea or chest congestion GI: Denies: abdominal pain, nausea, vomiting or diarrhea Musc: Denies: neck pain, back pain, extremity pain or joint pain Skin/Breast: Denies: rash Neuro: Denies: headache(s), numbness in extremities, weakness in extremities or sensory changes PFSH ED PFSH: Medical History GERD (gastroesophageal reflux disease) Iron deficiency anemia Surgical History H/O carpal tunnel repair History of section Family History Other Cancer Social History Smoking and tobacco status: current every day smoker cigarettes Packs smoked per day: 0.25 Alcohol intake: current Alcohol intake frequency: holidays/special occasions only Desire information about substance/drug rehabilitation?: No History of recent travel: No Female Reproductive History: Date of last menstrual period: 07/13/20 Physical Exam Const: COMMON NORMALS: no acute distress, patient oriented x3, no limitations and alert GENERAL APPEARANCE: cooperative ORIENTATION/CONSCIOUSNESS: Yes awake, Yes oriented to person, Yes oriented to place and Yes oriented to time HENMT: COMMON NORMALS: normocephalic and atraumatic HEAD & SCALP: normal to inspection, normocephalic and atraumatic Eye: GENERAL EYE: appearance normal, both eyes and all related structures Resp: COMMON NORMALS: normal respiratory effort and clear to auscultation bilaterally AUSCULTATION: clear to auscultation bilaterally Cardio: COMMON NORMALS: regular rate and regular rhythm RATE: regular rate RHYTHM: regular rhythm Extremity: NARRATIVE EXTREMITY EXAM: mild symmetrical LE edema Neuro: [place] COMA SCALE: document GCS findings [place] coma scale eye opening: Spontaneous [place] coma scale verbal response: Orientated [place] coma scale motor response: Obey commands [place] coma scale total score: 15 COMMON NORMALS: patient oriented x3, CN's II-XII intact bilaterally, moves all extremities, no focal motor deficits, no sensory deficits noted and gait normal SENSORIUM/ORIENTATION: Yes alert, Yes oriented to person, Yes oriented to place and Yes oriented to time Skin: COMMON NORMALS: no rashes or lesions noted GENERAL SKIN EXAM: no rashes or lesions noted Course Vital Signs: Vital signs: Vital Signs Temperature 98.4 F 10/06/21 14:14 Pulse Rate 98 10/06/21 15:04 Respiratory Rate 18 10/06/21 15:04 Blood Pressure 177/118 10/06/21 15:04 Pulse Oximetry 96 10/06/21 15:04 Oxygen Delivery Me thod 10/06/21 15:04 MDM - General Adult Medical Decision Making Patient has a normal platelet count. She has no significant elevations to her LFTs. Normal creatinine. No proteinuria. She has no complaints of headache or visual changes. CXR does not show any pulmonary edema. We discussed how this is most likely hypertension. I do not have any concerns for preeclampsia at this time although precautions regarding this were given to patient. Patient states she would like something to help treat anxiety to see if this would help with her blood pressure. She is requesting something safe for breast-feeding. We will try Vistaril. I told her over the next 24 to 48 hours I want her to keep a strict blood pressure log and if blood pressure continues to run high she needs to begin taking the labetalol and contact her PCP and/or OB immediately or return to the emergency department. Lab Data : 10/06/21 14:59 10/06/21 14:59 Radiology Impressions Chest X-Ray 10/06/21 15:55 IMPRESSION: No acute findings. Laboratory Results WBC 9.8 10^3/uL (4.0-10.0) 10/06/21 14:59 RBC 3.32 10^6/uL (4.1-5.3) L 10/06/21 14:59 Hgb 10.6 g/dL (11.5-15.3) L 10/06/21 14:59 Hct 32.4 % (37.0-47.0) L 10/06/21 14:59 MCV 97.6 fl (81-99) 10/06/21 14:59 MCH 31.9 pg (28.0-34.0) 10/06/21 14:59 MCHC 32.7 g/dL (30.0-36.0) 10/06/21 14:59 RDW 14.3 % (12.1-15.1) 10/06/21 14:59 Plt Count 217 10^3/cmm (130-400) 10/06/21 14:59 MPV 10.6 fL (7.4-10.4) H 10/06/21 14:59 Neut % (Auto) 76.1 % 10/06/21 14:59 Lymph % (Auto) 14.2 % 10/06/21 14:59 [place] % (Auto) 6.7 % 10/06/21 14:59 Eos % (Auto) 0.8 % 10/06/21 14:59 Baso % (Auto) 0.3 % 10/06/21 14:59 Neut # (Auto) 7.43 10^3/uL (1.8-7.7) 10/06/21 14:59 Lymph # (Auto) 1.4 10^3/uL (0.8-4.8) 10/06/21 14:59 [place] # (Auto) 0.7 10^3/uL (0.2-0.9) 10/06/21 14:59 Eos # (Auto) 0.1 10^3/uL (0.0-0.8) 10/06/21 14:59 Baso # (Auto) 0.0 10^3/uL (0.0-0.1) 10/06/21 14:59 Nucleated RBC % (auto) 0 % 10/06/21 14:59 Nucleated RBCs # 0.0 /100WBC 10/06/21 14:59 Sodium 143 mmol/L (136-145) 10/06/21 14:59 Potassium 3.3 mmol/L (3.5-5.1) L 10/06/21 14:59 Chloride 106 mmol/L (98-107) 10/06/21 14:59 Carbon Dioxide 26 mmol/L (22-29) 10/06/21 14:59 Anion Gap 14.3 (5-19) 10/06/21 14:59 BUN 5 mg/dL (6-20) L 10/06/21 14:59 Creatinine 0.4 mg/dL (0.5-0.9) L 10/06/21 14:59 GFR Calculation 182.7 mL/min (90-130) H 10/06/21 14:59 Glucose 84 mg/dL (65-115) 10/06/21 14:59 Calculated Osmolality 292 mOsm/kg (285-295) 10/06/21 14:59 Uric Acid 6.1 mg/dL (2.4-5.7) H 10/06/21 14:59 Calcium 8.3 mg/dL (8.5-10.5) L 10/06/21 14:59 Total Bilirubin 0.2 mg/dL (0.15-1.2) 10/06/21 14:59 AST 30 U/L (0-32) 10/06/21 14:59 ALT 36 U/L (0-33) H 10/06/21 14:59 Alkaline Phosphatase 107 IU/L (35-105) H 10/06/21 14:59 Total Protein 5.9 g/dL (6.6-8.7) L 10/06/21 14:59 Albumin 3.1 g/dL (3.5-5.2) L 10/06/21 14:59 Globulin 2.8 g/dL (1.3-4.6) 10/06/21 14:59 Urine Color Straw (Yellow) 10/06/21 15:22 Urine Appearance Clear (CLEAR) 10/06/21 15:22 Urine pH 8 (5-7) H 10/06/21 15:22 Ur Specific [place] 1.010 (1.005-1.030) 10/06/21 15:22 Urine Protein Neg (Negative) 10/06/21 15:22 Urine Glucose (UA) Norm (Normal) 10/06/21 15:22 Urine Ketones Negative (Negative) 10/06/21 15:22 Urine Blood 3+ (Negative) H 10/06/21 15:22 Urine Nitrate Negative (Negative) 10/06/21 15:22 Urine Bilirubin Neg (Negative) 10/06/21 15:22 Prot Sulfosalicylic Acd Negative (Negative) 10/06/21 15:22 Urine Urobilinogen Norm mg/dL (Negative) 10/06/21 15:22 Ur Leukocyte Esterase Negative (Negative) 10/06/21 15:22 Urine RBC 0-4 /hpf (0-2) H 10/06/21 15:22 Urine WBC Rare /hpf (0-5) 10/06/21 15:22 Ur Squamous Epith Cells None /hpf (0-5) 10/06/21 15:22 Amorphous Sediment Not Reportable 10/06/21 15:22 Urine Bacteria Trace /hpf (NONE) 10/06/21 15:22 Discharge Plan Discharge Patient Disposition: Home Clinical Impression: hypertension, Anxiety Condition: Stable Prescriptions: New Vistaril 50 mg capsule 50 mg PO Q6H PRN (Reason: anxiety) Qty: 14 0RF labetalol 100 mg tablet 100 mg PO BID Qty: 30 0RF No Action fluticasone propionate [Flonase Allergy Relief] 50 mcg/actuation spray,suspension 2 spray intranasal DAILY 7 Days Qty: 16 0RF Rx Instructions: administer into each nostril omeprazole 20 mg capsule,delayed release(DR/EC) 20 mg PO DAILY cephalexin 250 mg capsule 250 mg PO Q6H 7 Days Qty: 28 0RF fluticasone propionate [Cutivate] 0.05 % cream 1 applic topical BID Qty: 120 3RF Discharge Orders: Discharge ED (Routine); Ordered 10/06/21 Ordered By: Paloma Marie Referrals: Tri Feliciano DO [Primary Care Provider] - Activity Restrictions/Additional Instructions: I want you to begin taking a blood pressure log 2-3 times daily. If the Vistaril/treatment of your anxiety does not lower your blood pressure in the next 24 to 48 hours you need to begin taking the labetalol and immediately contact your primary care provider or your OB provider for further evaluation and treatment. Coding Level of Care Code ED Supervisor Paint Roller Covers for Daleg Fwd Exam Detailed
--- NOTE | 2021-10-06 15:55 | XRR_ITS ---
PROCEDURE INFORMATION: Exam: XR Chest Exam date and time: 10/06/2021 3:56 PM Age: 36 years old Clinical indication: Shortness of breath; Additional info: SOB TECHNIQUE: Imaging protocol: Radiologic exam of the chest. Views: 1 view. COMPARISON: CT abdomen pelvis w con* [id number] 03/08/2018 9:54 PM FINDINGS: Lungs: No consolidation. Pleural spaces: Unremarkable. No pleural effusion. No pneumothorax. Heart/Mediastinum: No cardiomegaly. Bones/joints: No acute findings. XR/XR chest 1V portable [id number] IMPRESSION: No acute findings.
[2021-10-06 16:25] LABS: Urine Color Straw (Yellow)
[2021-10-06 16:26] LABS: Add Urine Microscopic? YES; Bilirubin Urine Neg (Negative); Blood Urine 3+ (Negative); Glucose Urine UA Norm (Normal); Ketones Urine Negative (Negative); Leukocyte Esterase Urine Negative (Negative); Nitrate Urine Negative (Negative); Protein Urine Neg (Negative); Sulfosalicylic Acid Urine Negative (Negative); Urine Appearance Clear (CLEAR); Urobilinogen Urine Norm (Negative); pH Urine 8 (5-7)
[2021-10-06 16:27] LABS: Add Urine Culture? No; Bacteria Urine TRACE /hpf; RBC Urine 0-4 /hpf (0-2); WBC Urine RARE /hpf (0-5)
[2021-10-06] MEDS: hyDROXYzine 25 mg Capsule 50 MG PO (17:09)
--- NOTE | 2021-10-06 17:09 | PC.NURSE ---
PATIENTS MEDICATION [id number] MG PO WAS SENT HOME WITH PATIENT PER SELVIN KNIGHT
[2021-10-06 17:19] LABS: Uric Acid 6.1 mg/dL (2.4-5.7)
== END 2021-10-06 17:50 | disposition home or self-care (01) ==
PROVIDERS: Emergency Provider Physician Assistant; PCP Family Medicine
DX: O16.5 Unspecified maternal hypertension, complicating the puerperium (principal); F41.9 Anxiety disorder, unspecified; F17.210 Nicotine dependence, cigarettes, uncomplicated
CPT/HCPCS: 71045; 80053; 81001; 84550; 85025; 99284

== ENCOUNTER → 2021-10-31 15:31 | Outpatient (BNVA) | payer BC, MEDICAID, SELFPAY | PROVIDERS: PCP Family Medicine; Visit Provider Registered Nurse Neonatal Intensive Care | DX: R11.10 Vomiting, unspecified (principal); R50.9 Fever, unspecified; B34.9 Viral infection, unspecified | CPT/HCPCS: 87400; 87426 ==

== ENCOUNTER 2022-02-04 06:46 | Day surgery (SDC) | payer BC, MEDICAID, SELFPAY ==
[2022-02-03 12:53] VITALS: BMI 32.0
[2022-02-04 06:52] VITALS: BP 161/104; PULSE 106; RESP 16; TEMP 36.6; O2SAT 97
[2022-02-04] MEDS: acetaminophen 1,000 MG/100 ML PIGGYBACK 400 MG IV (07:16)
[2022-02-04] MEDS: ketorolac 30 mg/mL INJ IVP (07:17)
[2022-02-04] MEDS: sodium chloride 0.9% 1,000 ML 30 ML IV (07:17)
--- NOTE | 2022-02-04 08:07 | W.PM.OPSUD ---
Surgery/Procedure H&P Update DATE OF PROCEDURE: February 04, 2022 DATE H&P PERFORMED: 01/12/22 CHANGES TO PREVIOUS DOCUMENTATION: None PREOP DIAGNOSIS: Right thumb trigger PRIMARY INDICATION FOR PROCEDURE: Right thumb trigger PLANNED PROCEDURE: Operation Date: 02/04/22 08:10 Proposed Procedures p Trigger thumb, right thumb 19719,M65.311(Right) - John Rojas DO
[2022-02-04] MEDS: ceFAZolin 2,000 MG in sodium chloride 0.9% (plus) 50 ML 100 MG IV (08:27)
[2022-02-04 08:35] LABS: OR HCG Qualitative Urine Negative (Negative)
[2022-02-04 09:12] VITALS: BP 126/87; PULSE 78; RESP 12; TEMP 36.1; O2SAT 97
--- NOTE | 2022-02-04 09:12 | P.OP_ITS ---
Brief Operative Note Date of procedure: 02/04/22 Pre-op diagnosis: Right thumb trigger Post-op diagnosis: same Procedure Done: Right thumb trigger release Surgeon: John Rojas Estimated blood loss (mL): 1 Complications: None Post-op Plan: Patient recovering well in PACU. Dressing on in place clean dry and intact. Will receive appropriate discharge structure as well as pain medication postoperatively. We will see me in office in 2 weeks. Condition: stable Disposition: same day Coding Level of Care Code Acute Tin Tie Machine Operator Automatic for Keaton Correia
--- NOTE | 2022-02-04 09:13 | PM.PACU ---
PACU note Narrative: Patient seen in PACU doing well. Fingertips warm well-perfused brisk capillary refill less than 2 seconds. Received local anesthesia and decreased sensation to the right thumb. Patient is able to flex and extend her thumb without triggering significant relief in pain. Exam: awake Disposition: discharged
--- NOTE | 2022-02-04 09:14 | PM.OP ---
Operative Report Date of procedure: February 04, 2022 Pre-op diagnosis: Preop Diagnosis Right thumb trigger Post-op diagnosis: Same Procedure done: Right thumb trigger release Surgeon: John Rojas DO Estimated blood loss: 1 mL 15min IV fluids: See anesthesia record Complications: None Condition: stable Disposition: same day
[2022-02-04 09:17] VITALS: BP 125/86; PULSE 81; RESP 12; TEMP 36.1; O2SAT 96
[2022-02-04 09:30] VITALS: BP 116/95; PULSE 66; RESP 16; TEMP 36.2; O2SAT 98
[2022-02-04 09:45] VITALS: BP 146/93; PULSE 72; RESP 18; TEMP 36.2; O2SAT 98
--- NOTE | 2022-02-04 12:01 | ANE.PACU2 ---
Inpatient post-anesthesia follow up: Airway intact: Yes Vital signs: Temperature 97.1 F Pulse Rate 72 Respiratory Rate 18 Blood Pressure 146/93 Pulse Oximetry 98 Oxygen Delivery Me thod Room Air Oxygen Flow Rate Fraction of Inspir ed Oxygen Hydration adequate: Yes Nausea and vomiting: No Pain level: 1 Mental status: Baseline
== END 2022-02-04 10:00 | disposition home or self-care (01) ==
PROVIDERS: PCP Nurse Practitioner Family; Visit Provider Student in an Organized Health Care Education/Training Program
PROC: (CPT 26055; principal; 2022-02-04 08:00)
DX: M65.311 Trigger thumb, right thumb (principal)
CPT/HCPCS: 26055; 84703; J0131; J0690; J1885; J2250; J2704; J2795; J3010; J3490; J7030

== ENCOUNTER → 2022-03-05 11:28 | Outpatient (BNVA) | payer BC, MEDICAID, SELFPAY | PROVIDERS: PCP Nurse Practitioner Family; Referring Provider Nurse Practitioner Family; Visit Provider Internal Medicine Rheumatology | DX: M45.6 Ankylosing spondylitis lumbar region (principal); M54.50 Low back pain, unspecified; G89.29 Other chronic pain; M25.50 Pain in unspecified joint; R21 Rash and other nonspecific skin eruption; L30.9 Dermatitis, unspecified; Z79.899 Other long term (current) drug therapy | CPT/HCPCS: 36415; 86021; 86036; 86812 ==

== ENCOUNTER 2022-04-22 15:20 | Outpatient (CLI) | payer BC, MEDICAID, SELFPAY ==
--- NOTE | 2022-04-22 15:47 | XR_ITS ---
WS: [id number] Exam: XR sacroiliac jts m 3V [id number] Date/Time of Exam: 04/22/2022 3:47 PM Reason For Exam: Z79.899 - Other correction (current) drug therapy No fracture or dislocation. Moderate DJD and bony sclerosis of the bilateral SI joints. No bone destr uction. The SI joints are open. XR/XR sacroiliac jts m 3V [id number] IMPRESSION: 1. Moderate bilateral SI joint DJD.
--- NOTE | 2022-04-22 15:47 | XR_ITS ---
WS: [id number] Exam: XR cervical spine 3V* [id number] Date/Time of Exam: 04/22/2022 3:47 PM Reason For Exam: Z79.899 - Other intermediate school teacher (current) drug therapy No fracture or dislocation. Disc spaces are preserved. Posterior elements are intact. Normal paraspin al soft tissues. The odontoid appears normal. XR/XR cervical spine 3V* [id number] IMPRESSION: 1. Normal C-spine study.
--- NOTE | 2022-04-22 15:47 | XR_ITS ---
WS: [id number] Exam: XR lumbar spine 2-3V* [id number] Date/Time of Exam: 04/22/2022 3:47 PM Reason For Exam: Z79.899 - Other termite technician (current) drug therapy No fracture or dislocation. Disc spaces are preserved. Posterior elements are intact. No scoliosis. M ildly increased lumbar lordosis. Paraspinal soft tissues are unremarkable. XR/XR lumbar spine 2-3V* [id number] IMPRESSION: 1. Mildly increased lumbar lordosis otherwise normal lumbar spine study.
== END 2022-04-22 15:21 | disposition home or self-care (01) ==
PROVIDERS: PCP Nurse Practitioner Family; Visit Provider Internal Medicine Rheumatology
DX: M45.6 Ankylosing spondylitis lumbar region (principal); Z79.899 Other long term (current) drug therapy
CPT/HCPCS: 72040; 72100; 72202

== ENCOUNTER 2022-04-23 15:51 | Outpatient (CLI) | payer BC, MEDICAID, SELFPAY ==
--- NOTE | 2022-04-23 | MR_ITS ---
WS: [id number] MRI BRAIN WITH HIGH-RESOLUTION IMAGING THROUGH THE INTERNAL AUDITORY CANALS WITHOUT AND WITH CONTRAST HISTORY: HEARING LOSS COMPARISON: None available. TECHNIQUE: Multiplanar, multisequence imaging is performed through the brain. Additional 3 mm imaging performed in multiple planes through the internal auditory canal. Postcontrast imaging with 17 ml's of MultiHance. No acute intracranial hemorrhage, midline shift, edema or mass effect. Ventricles and extra-axial spaces are normal. No inferior displacement of cerebellar tonsils. Clivus and pituitary gland are normal. Internal and external auditory canals: Unremarkable. Cranial nerves VII and VIII complexes: Unremarkable. No enhancement or mass. Cerebellopontine angles: Normal. Paranasal sinuses: Normal. Mastoid air cells: Normal. Calvarium and scalp: Normal. Visualized [place] and dural venous sinuses demonstrate no abnormality. MR/MR iac's wo/w con* [id number] IMPRESSION: Normal MRI IACs.
[2022-04-23] MEDS: gadobenate dimeglumine 20 mL vial IV (16:46)
== END 2022-04-23 15:52 | disposition home or self-care (01) ==
LOC: RAD 15:52
PROVIDERS: PCP Nurse Practitioner Family; Visit Provider Specialist
DX: H91.90 Unspecified hearing loss, unspecified ear (principal)
CPT/HCPCS: 70553; A9577

== ENCOUNTER 2022-07-16 11:39 | Outpatient (CLI) | payer BC, MEDICAID, SELFPAY ==
--- NOTE | 2022-07-16 | MM_ITS ---
NOTE: Report was unsigned for reason: Order was edited. Original Signature date and time was: 07/16/22 @ 1352 DIAGNOSTIC BILATERAL DIGITAL BREAST TOMOSYNTHESIS MAMMOGRAPHY WITH CAD Bilateral breast ultrasound, complete. HISTORY: ACUTE MASTITIS COMPARISON: 12/04/2019 TECHNIQUE: Bilateral craniocaudad, mediolateral oblique, and mediolateral views are submitted with tomosynthesis and SM. Computer aided detection utilized. Breast composition: The breasts are heterogeneously dense, which may obscure small masses. Increased densities and asymmetries throughout each breast but greatest on the LEFT since the prior study from 2019. There are no large focal collection such as an abscess. Patient is currently breast-feeding. No nipple retraction. Bilateral breast ultrasound, complete. RIGHT: All 4 quadrants are imaged. No mass or focal collection or abscess. No duct dilatation. LEFT: All 4 quadrants are imaged. No mass or focal collection or abscess. No duct dilatation. IMPRESSION: BI-RADS: 2-Benign FOLLOW UP: Age 42 [facility] MM/[place] [id number]
--- NOTE | 2022-07-16 11:51 | US_ITS ---
WS: [id number] DIAGNOSTIC BILATERAL DIGITAL BREAST TOMOSYNTHESIS MAMMOGRAPHY WITH CAD Bilateral breast ultrasound, complete. HISTORY: ACUTE MASTITIS COMPARISON: 12/04/2019 TECHNIQUE: Bilateral craniocaudad, mediolateral oblique, and mediolateral views are submitted with to favio and MIRACLE. Computer aided detection utilized. Breast composition: The breasts are heterogeneously dense, which may obscure small masses. Increased densities and asymmetries throughout each breast but greatest on the LEFT since the prior study from 2019. There are no large focal collection such as an abscess. Patient is currently breast-feeding. No nipple retraction. Bilateral breast ultrasound, complete. RIGHT: All 4 quadrants are imaged. No mass or focal collection or abscess. No duct dilatation. LEFT: All 4 quadrants are imaged. No mass or focal collection or abscess. No duct dilatation. US/US breast BI limited* [id number] IMPRESSION: BI-RADS: 2-Benign FOLLOW UP: Age 42
== END 2022-07-16 11:40 | disposition home or self-care (01) ==
LOC: RAD 11:45
PROVIDERS: PCP Nurse Practitioner Family; Visit Provider Nurse Practitioner Family
DX: N61.0 Mastitis without abscess (principal)
CPT/HCPCS: 76642; 77062; G0279

== ENCOUNTER 2023-06-17 08:11 | Outpatient (CLI) | payer BC, MEDICAID, SELFPAY ==
--- NOTE | 2023-06-17 08:14 | FL_ITS ---
WS: [id number] Exam: FL barium swallow [id number] Date/Time of Exam: 06/17/2023 8:15 AM Reason For Exam: GERD Fluoroscopy time: 1min [id number] minutes # of spot films: 5 Oral pharyngeal phase of swallowing was normal. The esophagus is smooth in contour. No sign of esopha geal stricture or mass. No hiatal hernia or gastroesophageal reflux. The esophagus is not displaced. Normal esophageal motility. IMPRESSION: 1. Normal esophagram.
== END 2023-06-17 08:12 | disposition home or self-care (01) ==
LOC: RAD 08:11
PROVIDERS: PCP Nurse Practitioner Family; Visit Provider Nurse Practitioner Family
DX: K21.9 Gastro-esophageal reflux disease without esophagitis (principal)
CPT/HCPCS: 74220